=== PATIENT | male | born 1955 | race Caucasian/White ===

== ENCOUNTER 2024-02-23 07:32 | Emergency (ER) | payer MEDICARE, SELFPAY ==
[2024-02-23 07:34] VITALS: BP 149/96
--- NOTE | 2024-02-23 07:46 | ED.GENMED ---
History of Present Illness
<Kemal Wade PA-C - Last Filed: 02/23/24 11:33>
General
Chief Complaint: Back Pain
Time Seen by Provider: 02/23/24 07:36
Travel History
Have you had any contact with someone who has COVID-19?: No
Do you have any symptoms of coronavirus? Fever > 100 degrees, chills, cough, shortness of breath, sore throat, loss of taste or smell, muscle aches, or headache?: No
History of Present Illness
History of Present Illness:
68 yo male w/ hx of GERD presents to the Emergency Department for evaluation of R scapular back discomfort after a fall 2d ago. Fell from a stepladder while power washing, landing on his R side. No head strike, no LOC. Pain gradually improving but
concerned that he cannot move well without intense pain. No pleuritic pain at rest. No hemoptysis. Not on OAC/antiplatelets, did take Sarah-Condon this AM. No anterior chest pain.
Past History
<Kemal Wade PA-C - Last Filed: 02/23/24 11:33>
Past History
ED Past Medical History: None
ED Past Surgical History: None
Social History
Tobacco: Non-smoker
Alcohol: Occasional
Personal:
Living: with family
Review of Systems
<Kemal Wade PA-C - Last Filed: 02/23/24 11:33>
Review of Systems
Allergies reviewed?: Yes
All Other Systems: ROS reviewed and negative except as documented in HPI and ROS
Phy Exam
<Kemal Wade PA-C - Last Filed: 02/23/24 11:33>
Physical Exam
Physical Exam:
GEN: Well appearing, NAD, WDWN
HEENT: Oral mucosa moist, no scleral icterus
Cardiac: Regular rate and rhythm
Lung: No respiratory distress, no tachypnea, clear lungs bilat, no pleural rubs
MSK: Moderate swelling w/o ecchymosis or crepitus to the R paraspinous/medial scapular musculature in thoracic back.
Skin: Good color, no pallor or jaundice, no rashes
Neuro: AO x3, moves all extremities freely. Normal BUE strength
Psych: Calm, cooperative
Course
<Kemal Wade PA-C - Last Filed: 02/23/24 11:33>
Orders/Labs/Results
Orders:
Orders
02/23/24 07:45
Ketorolac [Toradol] 30 mg IM NOW STA
Lidocaine [Lidocaine 4% Patch] 1 patch TOPICAL NOW STA
CR Ribs-right 3 Vw W/pa Chest* Urgent
Comment:
Reason For Exam: fall, R posterior thoracic injury
02/23/24 08:09
CT Cervical Spine W/o Iv Contr Urgent
Comment:
Reason For Exam: fall
CT Chest With Iv Contrast Urgent
Comment:
Reason For Exam: fall, rib fx, PTX
02/23/24 08:10
CT Head W/o Iv Contrast Urgent
Comment:
Reason For Exam: fall
02/23/24 08:35
Fentanyl Citrate/Pf [Sublimaze] 75 mcg IV NOW STA
Midazolam HCl [Versed] 2 mg IV NOW STA
02/23/24 09:01
Complete Blood Count/With Diff Urgent
Comprehensive Metabolic Panel Urgent
Prothrombin Time Urgent
Abnormal Lab Results
02/23/24
09:01
WBC 12.4 H 10^3/uL
(4.8-10.8)
Abs Immat Gran (auto) 0.1 H 10^3/uL
(0-0.05)
Absolute Neuts (auto) 9.4 H 10^3/uL
(1.4-6.5)
Absolute Monos (auto) 1.4 H 10^3/uL
(0.1-0.6)
Neutrophils % 75.6 H %
(42.2-75.2)
Lymphocytes % 12.2 L %
(20.5-51.1)
Monocytes % 10.9 H %
(1.7-9.3)
BUN 22 H mg/dl
(9-20)
Glucose 112 H mg/dl
(70-99)
02/23/24 09:01
02/23/24 09:01
Vital Signs
Initial and Last Documented VS:
Initial Vital Signs
Temp Pulse Resp BP Pulse Ox
98.2 F 78 16 149/96 97
02/23/24 07:34 02/23/24 07:34 02/23/24 07:34 02/23/24 07:34 02/23/24 07:34
Last Documented Vital Signs
Temp Pulse Resp BP Pulse Ox
98.2 F 68 16 143/81 96
02/23/24 07:34 02/23/24 11:00 02/23/24 11:00 02/23/24 11:00 02/23/24 11:16
<Mino James, DO - Last Filed: 02/23/24 10:41>
Orders/Labs/Results
Orders:
Orders
02/23/24 07:45
Ketorolac [Toradol] 30 mg IM NOW STA
Lidocaine [Lidocaine 4% Patch] 1 patch TOPICAL NOW STA
CR Ribs-right 3 Vw W/pa Chest* Urgent
Comment:
Reason For Exam: fall, R posterior thoracic injury
02/23/24 08:09
CT Cervical Spine W/o Iv Contr Urgent
Comment:
Reason For Exam: fall
CT Chest With Iv Contrast Urgent
Comment:
Reason For Exam: fall, rib fx, PTX
02/23/24 08:10
CT Head W/o Iv Contrast Urgent
Comment:
Reason For Exam: fall
02/23/24 08:35
Fentanyl Citrate/Pf [Sublimaze] 75 mcg IV NOW STA
Midazolam HCl [Versed] 2 mg IV NOW STA
02/23/24 09:01
Complete Blood Count/With Diff Urgent
Comprehensive Metabolic Panel Urgent
Prothrombin Time Urgent
Abnormal Lab Results
02/23/24
09:01
WBC 12.4 H 10^3/uL
(4.8-10.8)
Abs Immat Gran (auto) 0.1 H 10^3/uL
(0-0.05)
Absolute Neuts (auto) 9.4 H 10^3/uL
(1.4-6.5)
Absolute Monos (auto) 1.4 H 10^3/uL
(0.1-0.6)
Neutrophils % 75.6 H %
(42.2-75.2)
Lymphocytes % 12.2 L %
(20.5-51.1)
Monocytes % 10.9 H %
(1.7-9.3)
BUN 22 H mg/dl
(9-20)
Glucose 112 H mg/dl
(70-99)
02/23/24 09:01
02/23/24 09:01
Vital Signs
Initial and Last Documented VS:
Initial Vital Signs
Temp Pulse Resp BP Pulse Ox
98.2 F 78 16 149/96 97
02/23/24 07:34 02/23/24 07:34 02/23/24 07:34 02/23/24 07:34 02/23/24 07:34
Last Documented Vital Signs
Temp Pulse Resp BP Pulse Ox
98.2 F 68 16 143/81 96
02/23/24 07:34 02/23/24 11:00 02/23/24 11:00 02/23/24 11:00 02/23/24 11:16
<Kemal Wade PA-C - Last Filed: 02/23/24 11:33>
MDM/Problems Addressed
MDM/Problems Addressed:
After initial review independently by myself of CXR showing PTX w/ rib fx, pt was sent promptly for trauma scans including CTH, C spine and CT chest. Pt placed on 6L NC with improvement in pain. CT scan confirms PTX however no easily accessible
window for placement of chest tube. I discussed this with [facility] trauma Dr Knight who is in agreement with us withhold chest tube given that pt is clinically stable. No other traumatic injuries identified. Remained stable until transfer
<Kemal Wade PA-C - Last Filed: 02/23/24 11:33>
*Critical Care Note
Total Time (30-74mins, 75-104mins- exclusive of procedures): 30 minutes
comment:
Critical care time: 30 min
Critical care time was exclusive of: Separately billable procedures, treating other patients, and teaching time
Critical care was necessary to treat or prevent imminent or life-threatening deterioration of the following conditions: trauma/PTX
Critical care time spent personally by me on the following activities:
[x] Review of old charts
[x] Obtaining history from patient or surrogate
[x] Ordering and review of the laboratory studies
[x] Ordering and review of radiographic studies
[x] Ordering and performing treatments and interventions
[x] Patient patient's response to treatment
[x] Development of treatment plan with patient or surrogate
<Kemal Wade PA-C - Last Filed: 02/23/24 11:33>
Update Note
Update Note:
0900: I personally reviewed the CT chest images, he does have a small apical pneumothorax. I do not see an adequate window for access for a chest tube. I reviewed the images with interventional radiology who are in agreement that this would be
best done under fluoroscopy. Given that the patient is clinically stable will discuss with [place] trauma regarding whether or not urgent placement is necessary at this time. I did also perform a bedside limited ultrasound and I see no adequate
window to access the pleural space without causing further injury to the lung parenchyma.
ED Attending Note
<Kmeal Wade PA-C - Last Filed: 02/23/24 11:33>
-
Portions of this chart may have been created with voice recognition software.� Occasional wrong word or��sound alike� substitutions may have occurred due to the inherent limitations of voice recognition software.
<Mino James DO - Last Filed: 02/23/24 10:41>
ED Attending Note
Patient seen and examined by attending physician: Yes
I performed the substantive portion of visit, reviewed & personally made and approve the management plan that is documented in note by myself or ANIYA.: Yes
ED Attending Note:
I have seen and evaluated the patient with a [id number] encounter. I have spoken to the advance practicer provider and involved in the medical history, the physical exam, medical decision making.
Evaluation and management service: agree unless noted differently below.
Results interpretation: agree unless noted differently below.
Focused HPI: 68-year-old male presenting with right lateral rib tenderness. He also complains of trauma back pain as well
Physical exam: Sitting in bed comfortably. Tenderness to right lateral ribs. Decreased breath sounds
Medical Decision Making: X-ray consistent with multiple rib fractures with pneumothorax. Will get Trauma's input on chest tube pending CT scan
Discharge Plan
Departure
Patient Disposition: Acute Care Hospital
Date of Disposition: 02/23/24
Time of Disposition: 09:10
Discharge Problem:
Traumatic fracture of ribs of right side with pneumothorax
Prescriptions:
No Action
gatifloxacin [Zymar] 1 DROP drops
1 drp OPHTHALMIC QID Qty: 1 0RF
Rx Instructions:
Times 7 days
hydrocodone-acetaminophen 1 TABLET tablet
1 tab PO Q4HPRN PRN (Reason: pain) Qty: 12 0RF
cephalexin [Keflex] 500 MG capsule
500 mg PO QID Qty: 28 0RF
Referrals:
Rashida Erazo MD [Family Provider] -
Hospital Transfer
Other hospital: [facility]
I certify that the patient requires transfer: Yes
Discussed case with accepting physician: Eugene
Reason for transfer: higher level of care
Interventions
Interventions:
*Risk Screen - Suicide Last Done: 02/23/24 07:34
*General Assessment Last Done: 02/23/24 07:34
*Neglect/Abuse Screening Last Done: 02/23/24 07:34
ED- Fall Risk Assessment Last Done: 02/23/24 11:16
*ED COVID-19 Vaccine History Last Done: 02/23/24 11:16
*Nursing Disposition Last Done: 02/23/24 11:16
ED-Musculoskeletal Assessment Last Done: 02/23/24 08:18
Discharge Date and Time
Discharge Date/Time: 02/23/24 11:18
Print Language: ICELANDIC
[2024-02-23 08:09] VITALS: BP 148/84
[2024-02-23 08:23] VITALS: BMI 25.7
[2024-02-23 09:00] VITALS: BP 154/90
[2024-02-23 09:19] LABS: % Basophils 0.3 % (0-2); % Eosinophils 0.6 % (0-6); % Immature Granulocytes 0.4 % (0-0.5); % Lymphocytes 12.2 % (20.5-51.1); % Monocytes 10.9 % (1.7-9.3); % Neutrophils 75.6 % (42.2-75.2); Absolute Eosinophils 0.1 10^3/uL (0-0.7); Absolute Immature Granulocytes 0.1 10^3/uL (0-0.05); Absolute Lymphocytes 1.5 10^3/uL (1.2-3.4); Absolute Monocytes 1.4 10^3/uL (0.1-0.6); Absolute Neutrophils 9.4 10^3/uL (1.4-6.5); Hematocrit 42.2 % (39.0-52.0); Hemoglobin 14.5 g/dL (13.0-18.0); Mean Corp Hgb Conc. 34.4 g/dL (33.0-37.0); Mean Corpuscular Hgb 30.2 pg (27.0-31.0); Mean Corpuscular Volume 87.9 fL (80.0-94.0); Mean Platelet Volume 10.3 fL (7.4-10.4); Nucleated Red Blood Cells % 0 % (-); Platelet Count 301 10^3/uL (130-400); Red Cell Dist. Width 13.7 % (11.5-14.5); White Blood Cell Count 12.4 10^3/uL (4.8-10.8)
[2024-02-23 09:27] LABS: INR 1.04; PT 13.4 Sec (11.4-14.6)
[2024-02-23] MEDS: SUBLIMAZE 75 MCG IV (09:29)
[2024-02-23 09:33] LABS: ALT (SGPT) 29 U/L (0-50); AST (SGOT) 47 U/L (17-59); Albumin 4.6 g/dl (3.5-5.0); Alkaline Phosphatase 66 U/L (38-126); Blood Urea Nitrogen 22 mg/dl (9-20); Carbon Dioxide 28 mmol/L (22-30); Chloride 103 mmol/L (98-107); Estimated Creatinine Clearance 101 ml/min; Glucose 112 mg/dl (70-99); Sodium 137 mmol/L (135-145); Total Protein 7.5 g/dl (6.3-8.2); eGFR > 60.00
[2024-02-23 10:00] VITALS: BP 141/86
[2024-02-23 11:00] VITALS: BP 143/81
== END 2024-02-23 11:18 | disposition short-term general hospital (02) ==
LOC: EMR 07:32
PROVIDERS: Physician Assistant; EMERGENCY PHYSICIAN Student in an Organized Health Care Education/Training Program; FAMILY PHYSICIAN Family Medicine
DX: S27.0XXA Traumatic pneumothorax, initial encounter (principal); S22.41XA Multiple fractures of ribs, right side, initial encounter for closed fracture; W11.XXXA Fall on and from ladder, initial encounter; Y93.H9 Activity, other involving exterior property and land maintenance, building and construction; K21.9 Gastro-esophageal reflux disease without esophagitis
CPT/HCPCS: 99291; 96374; 70450; 71101; 71260; 72125; 80053; 85025; 85610; Q9967

== ENCOUNTER 2024-06-04 06:25 | Emergency (ER) | payer MEDICARE, SELFPAY ==
[2024-06-04 06:42] VITALS: BP 141/80
--- NOTE | 2024-06-04 06:55 | ED.GENMED ---
History of Present Illness
General
Chief Complaint: Dizziness
Time Seen by Provider: 06/04/24 06:54
History of Present Illness
History of Present Illness:
HPI: Lightheaded / dizzy onset 2d ago. Chest tightness onset yesterday which does not radiate. Enola palpitations. Numb 4/5 fingers b/l. He had an injury/fall this past February which led to pneumothorax and rib fractures without needing chest
tube. He currently has no significant pain however does report some vague right-sided back discomfort that he thinks may have been related to the fall. He had some chest Pressure that started yesterday but noticed it again at some time but the
timing is somewhat unclear.
EXAM:
GENERAL: Well appearing in no distress
HEENT: Moist oral mucosa
CARDIOVASCULAR: No murmurs, normal heart rate, regular rhythm, No chest wall tenderness
PULMONARY: No respiratory distress, breath sounds are clear and equal
ABDOMEN: Soft with no peritoneal signs, no tenderness
NEUROLOGIC: Excellent strength all extremities, no coordination deficits, normal finger-nose testing
PSYCHIATRIC: Appropriate mental status, normal insight and judgement
EXTREMITIES: Nontender, no edema, moves all extremities equally
SKIN: No rash, no lesions
TIME OF INITIAL ENCOUNTER: 7:30 AM
NUMBER AND COMPLEXITY OF PROBLEMS ADDRESSED AT THE ENCOUNTER
� Chronic conditions affecting care: Pneumothorax, rib fractures, GERD
� Acute Exacerbation and/or Progression of Chronic Illness: This is an acute problem
� Differential Diagnosis includes: Nonspecific lightheadedness, vertigo, intracranial pathology, CVA unlikely, ACS unlikely
AMOUNT AND/OR COMPLEXITY OF DATA TO BE REVIEWED AND ANALYZED
� I performed an independent evaluation of and my interpretation is:
EKG: Sinus 64, no acute ST abnormality
CT: CT imaging of the brain negative.
X-rays:
Laboratory Studies: CBC normal, chemistries relatively unremarkable however BUN slightly elevated 27, troponin less than 0.012
Other:
� Review of other/old records: The patient was here and then transferred for right-sided rib fracture/pneumothorax February 23, 2024
� Clinical information was obtained by an independent historian: I spoke to at bedside
� Prescriptions/Medications Considered but not given:
� Further testing considered but not performed:
RISK OF COMPLICATIONS AND/OR MORBIDITY OR MORTALITY OF PATIENT MANAGEMENT
� Social determinants of health affecting care: Lives at home with .
� Discussion with other providers:
� Escalation of care including admission/observation vs risk of discharge considered: The patient is very well-appearing. Initial troponin negative. EKG unremarkable. He feels well-hydrated but will give 500 mL of IV fluids.
Second troponin also unremarkable and unchanged from initial. Blood work unremarkable. I reevaluate patient at 10:30 AM, the patient is able to walk without any difficulty. His finger-nose testing was normal. Very low suspicion for posterior
stroke. Regarding his chest discomfort, I recommend that he follows up with mill feeder. He does not have a mill feeder but his would like him to see Dr. Brenner's group.
Past History
Past History
ED Past Medical History: None
ED Past Surgical History: None
Social History
Tobacco: Non-smoker
Alcohol: Occasional
Personal:
Living: with family
Phy Exam
Physical Exam
Physical Exam:
See HPI
Course
Orders/Labs/Results
Orders:
Orders
06/04/24 06:28
Electrocardiogram (*1) Urgent
Reason for Study: Chest Pain
Cardiac Monitoring- Treatment ONCE
EKG- Treatment ONCE
IV Insert/Care/Rem.- Treatment PRN
O2 Therapy [RESP] Urgent
Titrate/Wean O2 to maintain O2 sat greater than (%): 90
Special Instructions: Maintain sats >/=90%
Pulse Ox/spot Check [RESP] Urgent
Quantity: 1
Special Instructions: ON ROOM AIR
06/04/24 06:52
Complete Blood Count/With Diff Urgent
Comprehensive Metabolic Panel Urgent
Troponin I Urgent
06/04/24 07:33
0.9% Sodium Chloride 500 ml [Nss] 500 ml IV BOLUS
06/04/24 07:34
CT Head W/o Iv Contrast Urgent
Comment:
Reason For Exam: dizzy, numbness
06/04/24 08:59
Troponin I Urgent
Abnormal Lab Results
06/04/24
06:52
Monocytes % 9.7 H %
(1.7-9.3)
Carbon Dioxide 31 H mmol/L
(22-30)
BUN 27 H mg/dl
(9-20)
Glucose 117 H mg/dl
(70-99)
06/04/24 06:52
06/04/24 06:52
Vital Signs
Initial and Last Documented VS:
Initial Vital Signs
Temp Pulse Resp BP Pulse Ox
98.1 F 65 20 141/80 98
06/04/24 06:42 06/04/24 06:42 06/04/24 06:42 06/04/24 06:42 06/04/24 06:42
Last Documented Vital Signs
Temp Pulse Resp BP Pulse Ox
98.1 F 65 18 130/84 98
06/04/24 06:42 06/04/24 10:00 06/04/24 07:15 06/04/24 10:00 06/04/24 10:00
*Critical Care Note
Total Time (30-74mins, 75-104mins- exclusive of procedures): Not Applicable
ED Attending Note
-
Portions of this chart may have been created with voice recognition software.� Occasional wrong word or��sound alike� substitutions may have occurred due to the inherent limitations of voice recognition software.
Discharge Plan
Departure
Prescriptions:
No Action
No Current Medications
0
Referrals:
Rashida Erazo MD [Family Provider] -
Interventions
Interventions:
*Risk Screen - Suicide Last Done: 06/04/24 06:42
*General Assessment Last Done: 06/04/24 06:42
*Neglect/Abuse Screening Last Done: 06/04/24 06:42
ED- Fall Risk Assessment Last Done: 06/04/24 06:42
*ED COVID-19 Vaccine History Last Done: 06/04/24 06:42
ED- Pulmonary Assessment Last Done: 06/04/24 07:07
ED- Neurological Assessment Last Done: 06/04/24 07:06
ED- Cardiac Assessment Last Done: 06/04/24 07:06
Discharge Date and Time
Print Language: [email or web address]
[2024-06-04 07:01] LABS: % Basophils 1.1 % (0-2); % Eosinophils 3.4 % (0-6); % Immature Granulocytes 0.3 % (0-0.5); % Lymphocytes 28.4 % (20.5-51.1); % Monocytes 9.7 % (1.7-9.3); % Neutrophils 57.1 % (42.2-75.2); Absolute Basophils 0.1 10^3/uL (0-0.2); Absolute Eosinophils 0.2 10^3/uL (0-0.7); Absolute Lymphocytes 1.8 10^3/uL (1.2-3.4); Absolute Monocytes 0.6 10^3/uL (0.1-0.6); Absolute Neutrophils 3.6 10^3/uL (1.4-6.5); Hematocrit 41.7 % (39.0-52.0); Hemoglobin 14.3 g/dL (13.0-18.0); Mean Corp Hgb Conc. 34.3 g/dL (33.0-37.0); Mean Corpuscular Hgb 29.4 pg (27.0-31.0); Mean Corpuscular Volume 85.8 fL (80.0-94.0); Mean Platelet Volume 9.1 fL (7.4-10.4); Nucleated Red Blood Cells % 0 % (-); Platelet Count 341 10^3/uL (130-400); Red Blood Cell Count 4.86 10^6/uL (4.70-6.10); Red Cell Dist. Width 13.5 % (11.5-14.5); White Blood Cell Count 6.3 10^3/uL (4.8-10.8)
[2024-06-04 07:12] LABS: ALT (SGPT) 21 U/L (0-50); AST (SGOT) 23 U/L (17-59); Albumin 4.6 g/dl (3.5-5.0); Alkaline Phosphatase 75 U/L (38-126); Blood Urea Nitrogen 27 mg/dl (9-20); Calcium 9.9 mg/dl (8.4-10.2); Carbon Dioxide 31 mmol/L (22-30); Chloride 104 mmol/L (98-107); Glucose 117 mg/dl (70-99); Potassium 4.7 mmol/L (3.5-5.1); Sodium 139 mmol/L (135-145); Total Bilirubin 0.9 mg/dl (0.2-1.3); Total Protein 7.2 g/dl (6.3-8.2); eGFR > 60.00
[2024-06-04 07:15] VITALS: BP 132/82
[2024-06-04 07:23] LABS: Troponin I < 0.012 ng/ml
[2024-06-04] MEDS: NSS 500 IV (07:44)
[2024-06-04 08:00] VITALS: BP 136/79
[2024-06-04 08:33] VITALS: BP 135/72
[2024-06-04 09:00] VITALS: BP 136/85
[2024-06-04 10:00] VITALS: BP 130/84
[2024-06-04 10:06] LABS: Troponin I < 0.012 ng/ml
== END 2024-06-04 10:49 | disposition home or self-care (01) ==
LOC: EMR 06:25
PROVIDERS: EMERGENCY PHYSICIAN Emergency Medicine; FAMILY PHYSICIAN Family Medicine
DX: R07.89 Other chest pain (principal); R42 Dizziness and giddiness; R03.0 Elevated blood-pressure reading, without diagnosis of hypertension; S27.0XXA Traumatic pneumothorax, initial encounter; W19.XXXA Unspecified fall, initial encounter
CPT/HCPCS: 99284; 96360; 70450; 80053; 84484; 85025; 93005

== ENCOUNTER → 2025-04-12 07:59 | Outpatient (REF) | payer MEDICARE, SELFPAY | LOC: RAD 07:59 | PROVIDERS: ATTENDING PHYSICIAN Family Medicine; OTHER PHYSICIAN Surgery | DX: E78.00 Pure hypercholesterolemia, unspecified (principal) | CPT/HCPCS: 75571 ==

== ENCOUNTER → 2025-06-30 08:29 | Outpatient (REF) | payer MEDICARE, SELFPAY | LOC: MRI 3T 08:29 | PROVIDERS: ATTENDING PHYSICIAN Surgery; FAMILY PHYSICIAN Family Medicine | DX: R97.20 Elevated prostate specific antigen [PSA] (principal); Z13.89 Encounter for screening for other disorder | CPT/HCPCS: 70030; 72197; A9575 ==

== ENCOUNTER → 2025-08-11 16:34 | Outpatient (REF) | payer MEDICARE, SELFPAY | LOC: RAD 16:34 | PROVIDERS: ATTENDING PHYSICIAN Nurse Practitioner Adult Health; FAMILY PHYSICIAN Family Medicine | DX: R05.1 Acute cough (principal) | CPT/HCPCS: 71046 ==